=== PATIENT | male | born 2000 | race Caucasian/White ===

== ENCOUNTER 2025-01-13 12:36 | Emergency (ER) | payer SELFPAY ==
[2025-01-13 12:42] VITALS: BP 108/67
[2025-01-13 12:56] LABS: Hematocrit 49.8 % (39.0-52.0); Hemoglobin 17.6 g/dL (13.0-18.0); Mean Corp Hgb Conc. 35.3 g/dL (33.0-37.0); Mean Corpuscular Volume 88.5 fL (80.0-94.0); Nucleated Red Blood Cells % 0 % (-); Platelet Count 213 10^3/uL (130-400); Red Cell Dist. Width 11.6 % (11.5-14.5)
[2025-01-13 13:12] LABS: ALT (SGPT) 55 U/L (0-50); AST (SGOT) 31 U/L (17-59); Albumin 5.2 g/dl (3.5-5.0); Alkaline Phosphatase 72 U/L (38-126); Blood Urea Nitrogen 23 mg/dl (9-20); Calcium 10.0 mg/dl (8.4-10.2); Carbon Dioxide 29 mmol/L (22-30); Chloride 98 mmol/L (98-107); Glucose 118 mg/dl (70-99); Lipase 31 U/L (23-300); Potassium 3.8 mmol/L (3.5-5.1); Sodium 138 mmol/L (135-145); Total Protein 8.2 g/dl (6.3-8.2); eGFR > 60.00
--- NOTE | 2025-01-13 16:02 | ED.GENMED ---
History of Present Illness
<Aida Longoria PA-C - Last Filed: 01/14/25 12:07>
General
Chief Complaint: Abdominal Symptoms
Source: patient
Exam Limitations: none
Time Seen by Provider: 01/13/25 15:23
Nursing documentation reviewed up to this point in time: agreed with
History of Present Illness
History of Present Illness:
Patient is a 24-year-old male who presents to the emergency department for evaluation of vomiting. Patient states he started with intractable nausea/vomiting yesterday. He has not had anything to eat. He has not had any bowel movements. He
describes a 'cramping/spasming' pain in his upper abdomen which radiates across to both sides. He denies any radiation to his back. He denies any current chest pain or shortness of breath. No fevers. No productive cough. No hemoptysis.
He states when spasms occur he feels that his upper abdomen/chest is tight.
Of note�patient states he did start with intermittent and mild nausea without 10 days ago however symptoms seem to worsen acutely yesterday.
No known sick contacts. He drinks alcohol recreationally. No recreational drug use.
Past History
<Aida Longoria PA-C - Last Filed: 01/14/25 12:07>
Past History
ED Past Medical History: None
ED Past Surgical History: None
Social History
Tobacco: Non-smoker
Alcohol: Binge drinker
Drug: Marijuana
Personal: Single
Review of Systems
<Aida Longoria PA-C - Last Filed: 01/14/25 12:07>
Review of Systems
Allergies reviewed?: Yes
All Other Systems: ROS reviewed and negative except as documented in HPI and ROS
Phy Exam
<Aida Longoria PA-C - Last Filed: 01/14/25 12:07>
Physical Exam
Physical Exam:
Vitals: Patient's vital signs are stable. Afebrile
General: Patient is resting comfortably, in no distress
Skin: Warm and dry, no rashes or lesions
Head: Normocephalic, atraumatic
Throat: Protecting airway
Neck: Normal ROM, no cervical spine tenderness, no meningismus
Cardiac: Regular rate and rhythm, no murmurs.
Pulm: Normal respiratory effort. Lungs clear
.
Abdomen: Abdomen soft. Mild tenderness in epigastric region. No rebound or guarding. Negative Richardson sign. No focal tenderness at Jes's point.
Extremities: No evidence of cyanosis or edema
Neuro: AAOx3. Grossly intact.
Psychiatric: Normal affect.
Course
<Aida Longoria PA-C - Last Filed: 01/14/25 12:07>
Orders/Labs/Results
Orders:
Orders
01/13/25 12:47
Complete Blood Count/With Diff Urgent
Comprehensive Metabolic Panel Urgent
Lipase Urgent
01/13/25 15:37
0.9% Sodium Chloride 1000 ml [Nss] 1,000 ml IV BOLUS
Famotidine [Pepcid] 20 mg IV NOW STA
Ketorolac [Toradol] 15 mg IV NOW STA
US Abdomen Limited Urgent
Reason For Exam: Upper abdominal pain
01/13/25 15:38
Ondansetron Injectable [Zofran] 4 mg IV NOW STA
01/13/25 16:16
EKG [Electrocardiogram (*1)] Urgent
Reason for Study: Tachycardia
EKG- Treatment ONCE
01/13/25 16:28
Troponin I Urgent
01/13/25 17:30
Mag Hydrox/Al Hydrox/Simeth [Maalox] 30 ml Phenobarb/Hyoscy/Atropine/Scop [] 10 ml Viscous Lidocaine 2% [Xylocaine Viscous Cup] 10 ml PO NOW
01/13/25 17:33
Mag Hydrox/Al Hydrox/Simeth [Maalox] 30 ml .ROUTE .STK-MED ONE
Phenobarb/Hyoscy/Atropine/Scop [] 10 ml .ROUTE .STK-MED ONE
01/13/25 17:34
Viscous Lidocaine 2% [Xylocaine Viscous Cup] 15 ml .ROUTE .STK-MED ONE
01/13/25 18:16
CR Chest - 2 Views Urgent
Comment:
Reason For Exam: chest pain
01/13/25 19:26
Troponin I Urgent
Abnormal Lab Results
01/13/25
12:47
MCH 31.3 H pg
(27.0-31.0)
Absolute Neuts (auto) 8.5 H 10^3/uL
(1.4-6.5)
Absolute Monos (auto) 0.7 H 10^3/uL
(0.1-0.6)
Neutrophils % 81.5 H %
(42.2-75.2)
Lymphocytes % 11.1 L %
(20.5-51.1)
BUN 23 H mg/dl
(9-20)
Glucose 118 H mg/dl
(70-99)
ALT 55 H U/L
(0-50)
Albumin 5.2 H g/dl
(3.5-5.0)
01/13/25 12:47
01/13/25 12:47
Vital Signs
Initial and Last Documented VS:
Initial Vital Signs
Temp Pulse Resp BP Pulse Ox
97.8 F 62 16 108/67 99
01/13/25 12:42 01/13/25 12:42 01/13/25 12:42 01/13/25 12:42 01/13/25 12:42
Last Documented Vital Signs
Temp Pulse Resp BP Pulse Ox
97.8 F 58 13 104/65 98
01/13/25 12:42 01/13/25 20:21 01/13/25 20:21 01/13/25 20:21 01/13/25 20:15
<Taurus Gaona, DO - Last Filed: 01/13/25 19:31>
Orders/Labs/Results
Orders:
Orders
01/13/25 12:47
Complete Blood Count/With Diff Urgent
Comprehensive Metabolic Panel Urgent
Lipase Urgent
01/13/25 15:37
0.9% Sodium Chloride 1000 ml [Nss] 1,000 ml IV BOLUS
Famotidine [Pepcid] 20 mg IV NOW STA
Ketorolac [Toradol] 15 mg IV NOW STA
US Abdomen Limited Urgent
Reason For Exam: Upper abdominal pain
01/13/25 15:38
Ondansetron Injectable [Zofran] 4 mg IV NOW STA
01/13/25 16:16
EKG [Electrocardiogram (*1)] Urgent
Reason for Study: Tachycardia
EKG- Treatment ONCE
01/13/25 16:28
Troponin I Urgent
01/13/25 17:30
Mag Hydrox/Al Hydrox/Simeth [Maalox] 30 ml Phenobarb/Hyoscy/Atropine/Scop [] 10 ml Viscous Lidocaine 2% [Xylocaine Viscous Cup] 10 ml PO NOW
01/13/25 17:33
Mag Hydrox/Al Hydrox/Simeth [Maalox] 30 ml .ROUTE .STK-MED ONE
Phenobarb/Hyoscy/Atropine/Scop [] 10 ml .ROUTE .STK-MED ONE
01/13/25 17:34
Viscous Lidocaine 2% [Xylocaine Viscous Cup] 15 ml .ROUTE .STK-MED ONE
01/13/25 18:16
CR Chest - 2 Views Urgent
Comment:
Reason For Exam: chest pain
01/13/25 19:26
Troponin I Urgent
Abnormal Lab Results
01/13/25
12:47
MCH 31.3 H pg
(27.0-31.0)
Absolute Neuts (auto) 8.5 H 10^3/uL
(1.4-6.5)
Absolute Monos (auto) 0.7 H 10^3/uL
(0.1-0.6)
Neutrophils % 81.5 H %
(42.2-75.2)
Lymphocytes % 11.1 L %
(20.5-51.1)
BUN 23 H mg/dl
(9-20)
Glucose 118 H mg/dl
(70-99)
ALT 55 H U/L
(0-50)
Albumin 5.2 H g/dl
(3.5-5.0)
01/13/25 12:47
01/13/25 12:47
Vital Signs
Initial and Last Documented VS:
Initial Vital Signs
Temp Pulse Resp BP Pulse Ox
97.8 F 62 16 108/67 99
01/13/25 12:42 01/13/25 12:42 01/13/25 12:42 01/13/25 12:42 01/13/25 12:42
Last Documented Vital Signs
Temp Pulse Resp BP Pulse Ox
97.8 F 58 13 104/65 98
01/13/25 12:42 01/13/25 20:21 01/13/25 20:21 01/13/25 20:21 01/13/25 20:15
<Aida Longoria PA-C - Last Filed: 01/14/25 12:07>
MDM/Problems Addressed
Differential Diagnosis Includes:
Not limited to: Gastritis, duodenitis, gastric ulcer, GERD, pancreatitis, biliary colic, acute cholecystitis, esophageal spasm, etc.
MDM/Problems Addressed:
24 year-old male with two days of vomiting and intermittent epigastric discomfort. No fevers. He does have history of frequent diarrhea with previous recommendation for G.I. evaluation.
Patient has stable vital signs on arrival. On exam, patient appears in no distress although does seem to have spasms of pain in epigastric region. Cardio/pulmonary assessment unremarkable. No tenderness in lower abdomen or focal tenderness McBurneys
point.
Differential as above. Will obtain labs, abdominal ultrasound. Will treat symptoms and give IVF.
Update: labs unremarkable. Ultrasound without acute abnormalities.
Upon return to room from US, patient complaining of chest discomfort. An EKG was obtained without evidence of acute ischemic changes. Troponin sent by RN.
I did assess patient at bedside who appears to be having intermittent pain/ spasm in lower chest/epigastric region. Very atypical in nature � less likely cardiac however will trend proponent.
Symptoms may reflect a possible esophageal spasm. Will obtain chest x-ray.
Update: Chest x-ray without acute findings. Serial troponins negative.
Patient remains hemodynamically stable and nontoxic. He feels better. Symptoms atypical with unclear etiology at this time. However � do not suspect, acute cardiac process or infectious etiology.
Possibly esophageal spasms or gastritis/GERD. Feel stable for discharge home with outpatient G.I. follow up. He may require endoscopy. Will start patient on PPI. Strict return precautions discussed.
Chronic conditions affecting care:
N/A
Acute Exacerbation and/or Progression of Chronic Illness:
N/A
<Aida Longoria PA-C - Last Filed: 01/14/25 12:07>
*Radiology
Radiology exam reviewed: preliminary read by ED provider (Chest x-ray reviewed by nm-no acute abnormalities) and radiology read reviewed
*Pulse Oximetry
SaO2: 99
Oxygen Mode of Delivery: Room air
Patient hypoxic: no
*EKG
Interpreted by ED Provider?: Yes
EKG Intrepretation Date: 01/14/25
Interpretation: normal
Comparison EKG: no comparison EKG present
Heart Rate: 73
Rate: normal
Rhythm: sinus and sinus arrhythmia
[place]: normal axis
Interval: normal QT interval
QRS Pattern: normal QRS
Ischemia: no ischemia
*Upholsterer Inside Interpretation
Rate: normal
Interpretation: normal
Heart Rate: 64
Rhythm: sinus
*Critical Care Note
Total Time (30-74mins, 75-104mins- exclusive of procedures): Not Applicable
ED Attending Note
<Aida Longoria PA-C - Last Filed: 01/14/25 12:07>
-
Portions of this chart may have been created with voice recognition software.� Occasional wrong word or��sound alike� substitutions may have occurred due to the inherent limitations of voice recognition software.
<Taurus Gaona DO - Last Filed: 01/13/25 19:31>
ED Attending Note
Patient seen and examined by attending physician: Yes
I performed the substantive portion of visit, reviewed & personally made and approve the management plan that is documented in note by myself or LÓPEZ.: Yes
ED Attending Note:
I have seen and evaluated the patient with a [id number] encounter. I have spoken to the advance practicer provider and involved in the medical history, the physical exam, medical decision making.
Evaluation and management service: agree unless noted differently below.
Results interpretation: agree unless noted differently below.
Focused HPI: 24-year-old male presenting with intermittent chest discomfort. He points to his center chest. This associated with intermittent nausea and poor p.o. intake. When this occurs, patient states it is hard to breathe.
Physical exam: Sitting bed comfortably. Abdomen soft and nontender. Heart regular rate and rhythm. Tenderness is not reproducible
Medical Decision Making: Workup is negative in regards to blood work, chest x-ray and abdominal ultrasound. We discussed the possibility of esophagitis or GI related pain. Discussed follow-up with GI in the outpatient setting. Will start H2
anderson
Discharge Plan
Departure
Patient Disposition: Home (Routine Discharge)
Date of Disposition: 01/13/25
Time of Disposition: 20:27
Patient with high blood pressure during this ER visit?: No
Condition: Good
Discharge Problem:
Epigastric pain
Instructions: Abdominal pain in adults - ED (DC)
Prescriptions:
New
albuterol sulfate [Ventolin HFA] 90 mcg/actuation HFA aerosol inhaler
1 inh inhalation Q6H PRN (Reason: shortness of breath or wheezing) Qty: 6.7 0RF
pantoprazole 40 mg tablet,delayed release (DR/EC)
40 mg PO DAILY Qty: 14 0RF
ondansetron 4 mg tablet,disintegrating
4 mg PO Q8H PRN (Reason: nausea and vomiting) Qty: 8 0RF
No Action
ondansetron 4 MG tablet,disintegrating
4 mg PO TIDPRN PRN (Reason: nausea/vomiting) Qty: 14 0RF
amoxicillin-pot clavulanate 1 TABLET tablet
1 tab PO Q12 Qty: 14 0RF
Referrals:
NONE,* [Family Provider, Internal Medicine]
Bao Ruelas, [Active, Gastroenterology] - Next open appointment
Activity Restrictions/Additional Instructions:
RETURN TO THE EMERGENCY DEPARTMENT WITH ANY FEVERS, CHEST PAIN OR SHORTNESS OF BREATH, PERSISTENT ABDOMINAL PAIN, INTRACTABLE NAUSEA/VOMITING, WORSENING IN CURRENT SYMPTOMS, OR ANY OTHER CONCERNS
- As discussed your lab work and abdominal ultrasound showed no acute abnormalities.
- You can take pantoprazole daily for the next few weeks. Prescription for Zofran has been sent to your pharmacy which you can take for persistent nausea. Is important to stay well-hydrated. I recommend a bland diet /low acid diet
- As discussed, it is important you follow-up with your GI doctor for further evaluation/management. You may require further imaging.
Interventions
Interventions:
*Risk Screen - Suicide Last Done: 01/13/25 16:28
*General Assessment Last Done: 01/13/25 16:28
*Neglect/Abuse Screening Last Done: 01/13/25 16:28
*ED- Fall Risk Assessment Last Done: 01/13/25 16:28
*ED COVID-19 Vaccine History Last Done: 01/13/25 16:28
*ED Influenza Vaccine History Last Done: 01/13/25 16:28
*Nursing Disposition Last Done: 01/13/25 20:36
VC-Xkdbif-Neaivpxzls Assessment Last Done: 01/13/25 17:09
Discharge Date and Time
Discharge Date/Time: 01/13/25 20:36
Print Language: KYRGYZ
[2025-01-13] MEDS: NSS 1000 IV (16:21)
[2025-01-13] MEDS: TORADOL 15 MG IV (16:22)
[2025-01-13] MEDS: ZOFRAN 4 MG IV (16:23)
[2025-01-13] MEDS: PEPCID 20 MG IV (16:24)
[2025-01-13 16:28] VITALS: BMI 23.3
[2025-01-13 16:30] VITALS: BP 119/74
[2025-01-13 17:01] LABS: Troponin I 0.017 ng/ml
[2025-01-13 17:09] VITALS: BP 115/73
[2025-01-13] MEDS: MAALOX 50 PO (17:35)
[2025-01-13 18:00] VITALS: BP 113/67
[2025-01-13 20:07] LABS: Troponin I < 0.012 ng/ml
[2025-01-13 20:21] VITALS: BP 104/65
== END 2025-01-13 20:36 | disposition home or self-care (01) ==
LOC: EMR 12:36
PROVIDERS: Emergency Medicine; Physician Assistant; EMERGENCY PHYSICIAN Student in an Organized Health Care Education/Training Program
DX: R10.13 Epigastric pain (principal)
CPT/HCPCS: 99284; 96374; 96375 ×2; 96361; 71046; 76705; 80053; 83690; 84484; 85025; 93005

== ENCOUNTER 2025-01-14 13:01 | Emergency (ER) | payer SELFPAY ==
[2025-01-14 13:04] VITALS: BP 119/66
--- NOTE | 2025-01-14 14:53 | ED.GENMED ---
History of Present Illness
<DAVID Rhodes - Last Filed: 01/15/25 15:09>
General
Chief Complaint: Abdominal Symptoms
Source: patient
Exam Limitations: none
Time Seen by Provider: 01/14/25 14:50
Nursing documentation reviewed up to this point in time: agreed with
History of Present Illness
History of Present Illness:
Patient is a 18 show male who presents to the ER for evaluation. Patient was seen here yesterday back with continued upper abdominal pain nausea and vomiting. He reports he started with vomiting on Sunday. He reports he has vomited too many times
to count and is not able to eat because of the vomiting. He does have intermittent discomfort in his upper epigastric area which is very sharp in nature. He was seen here yesterday given Zofran and sent home on pantoprazole and Zofran. He reports
he started vomiting again this morning. Patient reports social alcohol use he does vape nicotine.
Pt had a full work up yesterday in the ED including abd abdominal ultrasound which was unremarkable except for nonvisualization of the pancreatic tail chest x-ray which was negative and blood work. ALT was very minimally elevated lipase was normal
Past History
<DAVID Rhodes - Last Filed: 01/15/25 15:09>
Past History
ED Past Medical History: None
ED Past Surgical History: None
Social History
Tobacco: Non-smoker
Alcohol: Binge drinker
Drug: Marijuana
Personal: Single
Phy Exam
<DAVID Rhodes - Last Filed: 01/15/25 15:09>
General Physical Exam
General Presentation: no apparent distress
General age: appears stated age
General Skin: warm and dry
General Habitus: normal
General Hydration: appears well hydrated
Cardiovascular Exam
Cardiovascular Exam: regular rate/rhythm, no murmur and normal peripheral pulses
Pulmonary Exam
Pulmonary Exam: lungs clear and no respiratory distress
Gastrointestinal Exam
Gastrointestinal Exam: soft and other (mild epigastric tenderness )
Neurological Exam
Neurological Exam: alert and oriented x3
Musculoskeletal Exam
Musculoskeletal Exam: full ROM
Skin Exam
Skin Exam: normal color and warm/dry
Psychiatric Exam
Psychiatric Exam: normal mood/affect
Course
<DAVID Rhodes - Last Filed: 01/15/25 15:09>
Orders/Labs/Results
Orders:
Orders
01/14/25 15:19
IV Insert/Care/Rem.- Treatment PRN
0.9% Sodium Chloride 1000 ml [Nss] 1,000 ml IV BOLUS
Famotidine [Pepcid] 20 mg IV NOW STA
Ondansetron Injectable [Zofran] 4 mg IV NOW STA
01/14/25 15:20
Mag Hydrox/Al Hydrox/Simeth [Maalox] 30 ml Phenobarb/Hyoscy/Atropine/Scop [] 10 ml Viscous Lidocaine 2% [Xylocaine Viscous Cup] 10 ml PO NOW
01/14/25 15:22
Mag Hydrox/Al Hydrox/Simeth [Maalox] 30 ml .ROUTE .STK-MED ONE
Phenobarb/Hyoscy/Atropine/Scop [] 10 ml .ROUTE .STK-MED ONE
Viscous Lidocaine 2% [Xylocaine Viscous Cup] 15 ml .ROUTE .STK-MED ONE
01/14/25 15:30
Complete Blood Count/With Diff Urgent
Comprehensive Metabolic Panel Urgent
Lipase Urgent
Abnormal Lab Results
01/14/25
15:30
MCH 31.1 H pg
(27.0-31.0)
Absolute Monos (auto) 1.0 H 10^3/uL
(0.1-0.6)
Monocytes % 11.6 H %
(1.7-9.3)
Carbon Dioxide 32 H mmol/L
(22-30)
Glucose 103 H mg/dl
(70-99)
01/14/25 15:30
01/14/25 15:30
Vital Signs
Initial and Last Documented VS:
Initial Vital Signs
Temp Pulse Resp BP Pulse Ox
97.2 F 59 19 119/66 95
01/14/25 13:04 01/14/25 13:04 01/14/25 13:04 01/14/25 13:04 01/14/25 13:04
Last Documented Vital Signs
Temp Pulse Resp BP Pulse Ox
97.2 F 55 18 111/67 99
01/14/25 13:04 01/14/25 18:04 01/14/25 18:04 01/14/25 18:04 01/14/25 18:04
<Brigitte Austin PA-C - Last Filed: 01/14/25 18:02>
Orders/Labs/Results
Orders:
Orders
01/14/25 15:19
IV Insert/Care/Rem.- Treatment PRN
0.9% Sodium Chloride 1000 ml [Nss] 1,000 ml IV BOLUS
Famotidine [Pepcid] 20 mg IV NOW STA
Ondansetron Injectable [Zofran] 4 mg IV NOW STA
01/14/25 15:20
Mag Hydrox/Al Hydrox/Simeth [Maalox] 30 ml Phenobarb/Hyoscy/Atropine/Scop [] 10 ml Viscous Lidocaine 2% [Xylocaine Viscous Cup] 10 ml PO NOW
01/14/25 15:22
Mag Hydrox/Al Hydrox/Simeth [Maalox] 30 ml .ROUTE .STK-MED ONE
Phenobarb/Hyoscy/Atropine/Scop [] 10 ml .ROUTE .STK-MED ONE
Viscous Lidocaine 2% [Xylocaine Viscous Cup] 15 ml .ROUTE .STK-MED ONE
01/14/25 15:30
Complete Blood Count/With Diff Urgent
Comprehensive Metabolic Panel Urgent
Lipase Urgent
Abnormal Lab Results
01/14/25
15:30
MCH 31.1 H pg
(27.0-31.0)
Absolute Monos (auto) 1.0 H 10^3/uL
(0.1-0.6)
Monocytes % 11.6 H %
(1.7-9.3)
Carbon Dioxide 32 H mmol/L
(22-30)
Glucose 103 H mg/dl
(70-99)
01/14/25 15:30
01/14/25 15:30
Vital Signs
Initial and Last Documented VS:
Initial Vital Signs
Temp Pulse Resp BP Pulse Ox
97.2 F 59 19 119/66 95
01/14/25 13:04 01/14/25 13:04 01/14/25 13:04 01/14/25 13:04 01/14/25 13:04
Last Documented Vital Signs
Temp Pulse Resp BP Pulse Ox
97.2 F 55 18 111/67 99
01/14/25 13:04 01/14/25 18:04 01/14/25 18:04 01/14/25 18:04 01/14/25 18:04
<DAVID Rhodes - Last Filed: 01/15/25 15:09>
MDM/Problems Addressed
Differential Diagnosis Includes:
Not limited to gastritis esophagitis.
MDM/Problems Addressed:
As documented patient is a 24-year-old male who was seen here yesterday had a full workup diagnosed with likely esophagitis. Patient presents back with vomiting epigastric burning discomfort. Will give fluids and Zofran and once nausea is improved
will give a GI cocktail and plan to reevaluate. Patient is afebrile nontachycardic not hypoxic in no acute distress white count normal hemoglobin stable normal renal function.
Care of patient this time transferred to [facility]
<DAVID Rhodes - Last Filed: 01/15/25 15:09>
*Pulse Oximetry
SaO2: 95
Oxygen Mode of Delivery: Room air
*Critical Care Note
Total Time (30-74mins, 75-104mins- exclusive of procedures): Not Applicable
<Brigitte Austin PA-C - Last Filed: 01/14/25 18:02>
*Pulse Oximetry
Patient hypoxic: no
<Brigitte Austin PA-C - Last Filed: 01/14/25 18:02>
Update Note
Update Note:
Assumed care for patient at 1700 pending meds for suspected gastritis, peptic ulcer disease or esophagitis. Patient's second visit for the same symptoms. He had a very formal thorough workup yesterday for chest pain/epigastric pain including 2
troponins, nonischemic EKG, chest x-ray which was clear, ultrasound of his abdomen which is negative, LFTs which were unremarkable and he was given pantoprazole and Zofran. He took 1 dose of Zofran this morning but still vomited 3 times. He had
epigastric pain that comes in waves. There is no black stool. On exam currently after receiving IV Pepcid, Zofran, fluids and a GI cocktail he now is symptom-free. He was able to tolerate 2 containers of apple juice. He said he got up slight
feeling of 'locked up in his chest briefly but he never vomited. He now feels okay. He is concerned about going home and having the same symptoms happen. I did reach out to GI via [facility] office front desk attendant to try to get him an appointment.
Patient should continue the plan of pantoprazole, Zofran. He did eat heavy food yesterday after leaving here and he was advised that
ED Attending Note
<DAVID Rhodes - Last Filed: 01/15/25 15:09>
-
Portions of this chart may have been created with voice recognition software.� Occasional wrong word or��sound alike� substitutions may have occurred due to the inherent limitations of voice recognition software.
Discharge Plan
Departure
Patient Disposition: Home (Routine Discharge)
Date of Disposition: 01/14/25
Time of Disposition: 17:56
Patient with high blood pressure during this ER visit?: No
Discharge Problem:
Gastritis
Instructions: Clear Liquid Diet, [place] Diet, Gastritis (DC)
Prescriptions:
No Action
albuterol sulfate [Ventolin HFA] 90 mcg/actuation HFA aerosol inhaler
1 inh inhalation Q6H PRN (Reason: shortness of breath or wheezing) Qty: 6.7 0RF
pantoprazole 40 mg tablet,delayed release (DR/EC)
40 mg PO DAILY Qty: 14 0RF
ondansetron 4 mg tablet,disintegrating
4 mg PO Q8H PRN (Reason: nausea and vomiting) Qty: 8 0RF
Referrals:
[facility] [Other]
Funmilayo Burnett MD [Active, Gastroenterology] - Follow up in 1 week
Activity Restrictions/Additional Instructions:
YOU SHOULD TAKE HER PANTOPRAZOLE DAILY
AVOID ALCOHOL
AVOID SMOKING
AVOID ACIDIC FOODS, GREASY OR HEAVY FOODS
START BLAND AND INCREASE TOLERATED
CALL GI FOR APPT
RETURN FOR BLOODY VOMIT, DARK BLACK STOOL, REPEATED VOMITING, FEVER, OR ANY CONCERNS
Interventions
Interventions:
*Risk Screen - Suicide Last Done: 01/14/25 13:04
*General Assessment Last Done: 01/14/25 13:04
*Neglect/Abuse Screening Last Done: 01/14/25 13:04
*ED- Fall Risk Assessment Last Done: 01/14/25 15:24
*ED COVID-19 Vaccine History Last Done: 01/14/25 15:24
*ED Influenza Vaccine History Last Done: 01/14/25 15:24
*Nursing Disposition Last Done: 01/14/25 18:04
GZ-Aoqvzr-Gkwwgvadvn Assessment Last Done: 01/14/25 15:44
Discharge Date and Time
Discharge Date/Time: 01/14/25 18:05
Print Language: PASHTO
[2025-01-14 15:24] VITALS: BMI 23.0
[2025-01-14] MEDS: PEPCID 20 MG IV (15:30)
[2025-01-14] MEDS: NSS 1000 IV (15:30)
[2025-01-14] MEDS: ZOFRAN 4 MG IV (15:30)
[2025-01-14] MEDS: MAALOX 50 PO (15:34)
[2025-01-14 15:37] VITALS: BP 124/78
[2025-01-14 15:48] LABS: Hematocrit 43.2 % (39.0-52.0); Hemoglobin 15.1 g/dL (13.0-18.0); Mean Corp Hgb Conc. 35.0 g/dL (33.0-37.0); Mean Corpuscular Volume 88.9 fL (80.0-94.0); Nucleated Red Blood Cells % 0 % (-); Platelet Count 180 10^3/uL (130-400); Red Cell Dist. Width 11.8 % (11.5-14.5)
[2025-01-14 16:03] LABS: ALT (SGPT) 45 U/L (0-50); AST (SGOT) 23 U/L (17-59); Albumin 4.3 g/dl (3.5-5.0); Alkaline Phosphatase 52 U/L (38-126); Blood Urea Nitrogen 14 mg/dl (9-20); Calcium 9.2 mg/dl (8.4-10.2); Carbon Dioxide 32 mmol/L (22-30); Chloride 100 mmol/L (98-107); Estimated Creatinine Clearance > 125 ml/min; Glucose 103 mg/dl (70-99); Lipase 55 U/L (23-300); Potassium 3.6 mmol/L (3.5-5.1); Sodium 138 mmol/L (135-145); Total Protein 6.6 g/dl (6.3-8.2); eGFR > 60.00
[2025-01-14 18:04] VITALS: BP 111/67
== END 2025-01-14 18:05 | disposition home or self-care (01) ==
LOC: EMR 13:01
PROVIDERS: Nurse Practitioner; EMERGENCY PHYSICIAN Emergency Medicine
DX: K29.70 Gastritis, unspecified, without bleeding (principal); F17.290 Nicotine dependence, other tobacco product, uncomplicated
CPT/HCPCS: 96374; 96375; 96361; 99284; 80053; 83690; 85025